=== PATIENT | female | born 1975 | race Caucasian/White ===

== ENCOUNTER 2019-03-17 02:53 | Emergency (ER) | payer OTHER ==
--- NOTE | 2019-03-17 03:12 | ED ---
General Adult HPI - General Stated complaint: increased confusion Time Seen by Provider: 03/17/19 03:11 - History of Present Illness Initial comments: Holden is a 44-year-old alcoholic female who presents to the emergency department today from [facility] for evaluation of confusion and generalized weakness after taking Ativan. Patient reports she is a chronic alcoholic, she was previously drinking up to a fifth a day however over the past month has been trying to become sober, she has been in and out of multiple hospitals she did require ICU admission and chemical restraint and sedation due to DTs earlier last month however she's been doing well for the past 2 weeks. Patient reports that she is currently at [facility] where she is receiving by mouth Ativan for treatment of possible alcohol withdrawal. Patient reports that after her noon dose she felt generalized weakness and confusion. Patient states that she felt so weak she was unable to walk and had to crawl. Patient reports that this eventually resolved however upon gait being given another dose she again had the symptoms. Caregivers expressed concern she may be reacting to Ativan and sent her to ER for evaluation. - Related Data Home Medications Medication Instructions Recorded Confirmed Amitriptyline HCl [Elavil] 75 mg PO HS 03/17/19 03/17/19 Celecoxib [CeleBREX] 400 mg PO QID 03/17/19 03/17/19 LORazepam [Ativan] 1 mg PO Q4HR 03/17/19 03/17/19 Ranitidine HCl [Zantac] 150 mg PO BID 03/17/19 03/17/19 Verapamil [Isoptin] 80 mg PO TID 03/17/19 03/17/19 cloNIDine HCL [Catapres] 0.1 mg PO BID 03/17/19 03/17/19 Allergies Allergy/AdvReac Type Severity Reaction Status Date / Time Penicillins Allergy Anaphylaxis Verified 03/17/19 03:26 tramadol [From Ultram] Allergy Confusion Verified 03/17/19 03:27 codeine AdvReac Rash/Hives Verified 03/17/19 03:26 Review of Systems ROS Statement: Those systems with pertinent positive or pertinent negative responses have been documented in the HPI. ROS Other: All systems not noted in ROS Statement are negative. General Exam - General Exam Comments Initial Comments: Physical Exam GENERAL: Appears older than stated age HENT: Normocephalic, Atraumatic. EYES: PERRL, EOMI PULMONARY: Unlabored respirations. No audible rales rhonchi or wheezing was noted. CARDIOVASCULAR: There is a regular rate and rhythm without any murmurs gallops or rubs. ABDOMEN: Soft and nontender with normal bowel sounds. SKIN: Skin is clear with no lesions or rashes and otherwise unremarkable. : Deferred NEUROLOGIC: Patient is alert and oriented x3. Moving all extremities spontaneously MUSCULOSKELETAL: Normal extremities with adequate strength and full range of motion. No lower extremity swelling or edema. No calf tenderness. PSYCHIATRIC: Normal psychiatric evaluation. Course Vital Signs 03/17/19 03/17/19 03:12 04:34 Temperature 98.3 F 98.3 F Pulse Rate 94 99 Respiratory 18 18 Rate Blood Pressure 123/87 119/85 O2 Sat by Pulse 98 96 Oximetry Medical Decision Making - Medical Decision Making The patient was seen and evaluated, history is obtained from the patient and review of medical record She's last alcoholic beverages 5-6 days ago, she had arty gone through DTs at the outside facility, she reports that even in the 3 days that she was drinking prior to arrival at [facility] she was drinking very minimally compared to what her usual is This time I don't feel patient is having DTs. I feel the patient is likely reactive Ativan I'll recommend decreasing dose from 2 by mouth to 0.5 which patient is agreeable with Disposition Clinical Impression: Medication reaction Disposition: HOME SELF-CARE Condition: Stable Instructions (If sedation given, give patient instructions): Alcohol Withdrawal (ED) Additional Instructions: I recommend decreasing dose of Ativan to 0.5 or 0.25 mg Is patient prescribed a controlled substance at d/c from ED?: No Referrals: Nonstaff,Physician [Primary Care Provider] - 1-2 days
[2019-03-17 03:25] VITALS: RESP 18; TEMP 98.3
[2019-03-17 04:36] VITALS: BP 119/85; PULSE 99
== END 2019-03-17 04:36 | disposition home or self-care (01) ==
LOC: EC 02:53
DX: R41.0 Disorientation, unspecified (principal); R53.1 Weakness; T50.905A Adverse effect of unspecified drugs, medicaments and biological substances, initial encounter; Z79.1 Long term (current) use of non-steroidal anti-inflammatories (NSAID); Z88.0 Allergy status to penicillin; Z88.5 Allergy status to narcotic agent; Z79.899 Other long term (current) drug therapy
CPT/HCPCS: 99284